=== PATIENT | male | born 1945 | race African-American/Black ===

== ENCOUNTER → 2016-05-13 | Outpatient (CLI) | payer MEDICARE, OTHER ==
[~2016-05-13] VITALS: Ht 175.3 cm; Wt 95.0 kg
[~2016-05-13] MED LIST: ALLO300T2 PO; ASPI-825 PO; DEXL60CA3 PO; FLUT16H NASAL; GLYB5 PO; LORA0.5T2 PO; LORA10TA7 PO; LOSA50TA37 PO; NIFE60TA71 PO; PANCREAZE 21,01 EACH PO; PERCT10 PO; SENN-30 PO; TADA5TAB2 PO
[2016-05-13 10:54] VITALS: BP 136/77
[2016-05-13 11:47] LABS: GLUCOSE COMMENT 1 Doctor Notified; GLUCOSE,POINT OF CARE 252 MG/DL (70-110)
== END | disposition home or self-care (01) ==
LOC: SRCNTR 10:23
PROVIDERS: ATTEND Hospitalist
DX: I10 Essential (primary) hypertension (principal); E11.65 Type 2 diabetes mellitus with hyperglycemia; E78.5 Hyperlipidemia, unspecified; M10.9 Gout, unspecified
CPT/HCPCS: 82962; G0463

== ENCOUNTER → 2016-06-20 | Outpatient (CLI) | payer MEDICARE, OTHER ==
[~2016-06-20] VITALS: Ht 175.3 cm; Wt 93.0 kg
[2016-06-20 10:33] VITALS: BP 157/84
[2016-06-20 15:27] LABS: GLUCOSE,POINT OF CARE 170 MG/DL (70-110)
== END | disposition home or self-care (01) ==
LOC: SRCNTR 10:20
PROVIDERS: ATTEND Hospitalist
DX: I10 Essential (primary) hypertension (principal); E11.9 Type 2 diabetes mellitus without complications; E78.5 Hyperlipidemia, unspecified; K86.1 Other chronic pancreatitis; R32 Unspecified urinary incontinence; M10.9 Gout, unspecified; K21.9 Gastro-esophageal reflux disease without esophagitis
CPT/HCPCS: 82962; G0463

== ENCOUNTER → 2016-09-12 | Outpatient (CLI) | payer MEDICARE, OTHER ==
[~2016-09-12] VITALS: Ht 175.3 cm; Wt 93.2 kg
[2016-09-12 11:35] VITALS: BP 168/91
[2016-09-12 14:47] LABS: GLUCOSE COMMENT 1 Doctor Notified; GLUCOSE,POINT OF CARE 153 MG/DL (70-110)
== END | disposition home or self-care (01) ==
LOC: SRCNTR 11:20
PROVIDERS: ATTEND Hospitalist
DX: E11.9 Type 2 diabetes mellitus without complications (principal); M10.9 Gout, unspecified; E78.5 Hyperlipidemia, unspecified; K21.9 Gastro-esophageal reflux disease without esophagitis; M19.90 Unspecified osteoarthritis, unspecified site; I10 Essential (primary) hypertension; R10.9 Unspecified abdominal pain; K86.1 Other chronic pancreatitis; R32 Unspecified urinary incontinence; G89.29 Other chronic pain
CPT/HCPCS: 82962; G0463

== ENCOUNTER → 2016-09-24 | Outpatient (CLI) | payer MEDICARE, OTHER ==
[2016-09-24 13:42] LABS: BASOPHILS % (AUTO) 0.5 % (0.0-2.0); EOSINOPHILS % (AUTO) 1.6 % (1.0-6.0); HEMATOCRIT 41.7 % (41-53); HEMOGLOBIN 13.5 g/dL (13.5-17.5); LYMPHOCYTES # (AUTO) 2.5 K/uL (1.0-4.8); LYMPHOCYTES % (AUTO) 25.4 % (22.0-44.0); MEAN CORPUSCULAR HEMOGLOBIN 27.3 pg (26.0-34.0); MEAN CORPUSCULAR HGB CONC 32.3 G/dL (31.0-37.0); MEAN CORPUSCULAR VOLUME 84 fL (80-100); MONOCYTES # (AUTO) 0.7 K/uL (0.1-1.0); MONOCYTES % (AUTO) 6.9 % (2.0-9.0); NEUTROPHILS # (AUTO) 6.6 K/uL (1.8-7.7); NEUTROPHILS % (AUTO) 65.6 % (40.0-70.0); PLATELET COUNT (AUTO) 261 K/uL (150-450); RED BLOOD CELL COUNT(AUTO) 4.95 MIL/uL (4.50-5.90)
[2016-09-24 13:54] LABS: HEMOGLOBIN A1C 8.9 % (4.5-6.2)
[2016-09-24 13:56] LABS: ALBUMIN 4.6 g/dL (3.4-5.0); BILIRUBIN,TOTAL 0.4 mg/dL (0.1-1.0); CALCIUM, TOTAL 9.7 mg/dL (8.8-10.5); CHOL/HDL RATIO 4.7 (4.2-7.3); CREATININE 1.41 mg/dL (0.60-1.30); POTASSIUM 4.7 mmol/L (3.5-5.1); THYROID STIMULATING HORMONE 3.1 uIU/mL (0.36-3.74); TOTAL PROTEIN, SERUM 8.6 g/dL (6.4-8.2)
[2016-09-24 14:12] LABS: PROSTATE SPECIFIC ANTIGEN 0.84 ng/mL (0.00-4.00)
== END | disposition home or self-care (01) ==
LOC: LABPV 10:54
PROVIDERS: ATTEND Hospitalist
DX: K86.1 Other chronic pancreatitis (principal); I10 Essential (primary) hypertension; E11.9 Type 2 diabetes mellitus without complications; E78.5 Hyperlipidemia, unspecified
CPT/HCPCS: 83036; 84153; 84439; 84443

== ENCOUNTER → 2016-09-30 | Outpatient (CLI) | payer MEDICARE, OTHER ==
[~2016-09-30] MED LIST changes: +BARIUM SULFATE 0.1% SUSPENSION 450 ML BOTTLE ONE; +IOVERSOL 350 MG/ML 150 ML VIAL ONE; +SODIUM CHLORIDE 0.9% 100 ML ONE
== END | disposition home or self-care (01) ==
LOC: RADMN 07:51
PROVIDERS: ATTEND Hospitalist
DX: I70.0 Atherosclerosis of aorta (principal); K57.30 Diverticulosis of large intestine without perforation or abscess without bleeding; K42.9 Umbilical hernia without obstruction or gangrene; M47.819 Spondylosis without myelopathy or radiculopathy, site unspecified
CPT/HCPCS: 74177; J7050; Q9967; Z7610

== ENCOUNTER → 2016-12-06 | Outpatient (CLI) | payer MEDICARE, OTHER ==
[~2016-12-06] VITALS: Ht 175.3 cm; Wt 93.0 kg
[~2016-12-06] MED LIST changes: +ATOR10TA84 PO; -BARIUM SULFATE 0.1% SUSPENSION 450 ML BOTTLE ONE; -IOVERSOL 350 MG/ML 150 ML VIAL ONE; +LOSA1TAB37 PO; -SODIUM CHLORIDE 0.9% 100 ML ONE
[2016-12-06 10:55] VITALS: BP 124/71
[2016-12-06 12:13] LABS: GLUCOSE,POINT OF CARE 303 MG/DL (70-110)
== END | disposition home or self-care (01) ==
LOC: SRCNTR 10:43
PROVIDERS: ATTEND Hospitalist
DX: I10 Essential (primary) hypertension (principal); E11.9 Type 2 diabetes mellitus without complications; E78.5 Hyperlipidemia, unspecified; K21.9 Gastro-esophageal reflux disease without esophagitis; M19.90 Unspecified osteoarthritis, unspecified site; R10.9 Unspecified abdominal pain; M10.9 Gout, unspecified; R32 Unspecified urinary incontinence; J30.2 Other seasonal allergic rhinitis; G89.29 Other chronic pain; Z79.82 Long term (current) use of aspirin
CPT/HCPCS: 82962

== ENCOUNTER → 2018-01-22 | Outpatient (CLI) | payer MEDICARE, OTHER ==
[~2018-01-22] MED LIST changes: -LOSA50TA37 PO; +SENN-175 PO; -SENN-30 PO; +TADA5TAB PO; -TADA5TAB2 PO
== END | disposition home or self-care (01) ==
LOC: RADPV 07:38
PROVIDERS: ATTEND Specialist
DX: N28.1 Cyst of kidney, acquired (principal)
CPT/HCPCS: 76700

== ENCOUNTER → 2018-01-30 | Outpatient (CLI) | payer MEDICARE, OTHER | END | disposition home or self-care (01) | LOC: RADPV 08:23 | PROVIDERS: ATTEND Internal Medicine Cardiovascular Disease | DX: I37.1 Nonrheumatic pulmonary valve insufficiency (principal); I50.1 Left ventricular failure, unspecified | CPT/HCPCS: 93306 ==

== ENCOUNTER → 2018-02-06 | Outpatient (CLI) | payer MEDICARE, OTHER ==
[~2018-02-06] MED LIST changes: +SESTAMIBI TC99M/UD ISOTOPE 1 EA INJ INJ ONE
[2018-02-06 08:45] VITALS: BP 147/86
[2018-02-06] MEDS: REGADENOSON 0.4 MG/5 ML PF SYRINGE IVP ONE (09:52)
[2018-02-06 09:57] VITALS: BP 157/76
== END | disposition home or self-care (01) ==
LOC: CARDMN 08:36
PROVIDERS: ATTEND Internal Medicine Cardiovascular Disease
DX: I25.89 Other forms of chronic ischemic heart disease (principal)
CPT/HCPCS: 78452; 93017; A9500

== ENCOUNTER → 2018-04-20 | Outpatient (CLI) | payer MEDICARE, OTHER ==
[~2018-04-20] MED LIST changes: +GADOBUTROL 1 MMOL/ML 10 ML VIAL IVP ONE; -SENN-175 PO; +SENN-176 PO; -SESTAMIBI TC99M/UD ISOTOPE 1 EA INJ INJ ONE
== END | disposition home or self-care (01) ==
LOC: RADMN 08:31
PROVIDERS: ATTEND Legal Medicine
DX: N28.1 Cyst of kidney, acquired (principal)
CPT/HCPCS: 74183; A9585

== ENCOUNTER → 2018-11-10 | Outpatient (CLI) | payer MEDICARE, OTHER ==
[~2018-11-10] MED LIST changes: -GADOBUTROL 1 MMOL/ML 10 ML VIAL IVP ONE
== END | disposition home or self-care (01) ==
LOC: RADPV 10:37
PROVIDERS: ATTEND Legal Medicine
DX: N43.3 Hydrocele, unspecified (principal)
CPT/HCPCS: 76870

== ENCOUNTER → 2019-01-12 | Outpatient (CLI) | payer MEDICARE, OTHER ==
[~2019-01-12] MED LIST changes: +LORA-999 PO; -LORA0.5T2 PO
== END | disposition home or self-care (01) ==
LOC: RADPV 07:30
PROVIDERS: ATTEND Internal Medicine Gastroenterology
DX: N28.1 Cyst of kidney, acquired (principal); R16.0 Hepatomegaly, not elsewhere classified; K76.0 Fatty (change of) liver, not elsewhere classified; M25.512 Pain in left shoulder
CPT/HCPCS: 76700

== ENCOUNTER → 2019-04-29 | Outpatient (CLI) | payer MEDICARE, OTHER ==
[~2019-04-29] MED LIST changes: +BARIUM SULFATE 0.1% SUSPENSION 450 ML BOTTLE ONE; +IOVERSOL 350 MG/ML 100 ML VIAL ONE; +NIFE-39 PO; -NIFE60TA71 PO; +OXYC-601 PO; -PERCT10 PO; +SODIUM CHLORIDE 0.9% 100 ML ONE
== END | disposition home or self-care (01) ==
LOC: RADMN 08:55
PROVIDERS: ATTEND Internal Medicine Gastroenterology
DX: K57.30 Diverticulosis of large intestine without perforation or abscess without bleeding (principal); K85.90 Acute pancreatitis without necrosis or infection, unspecified; R07.9 Chest pain, unspecified; R10.30 Lower abdominal pain, unspecified; K44.9 Diaphragmatic hernia without obstruction or gangrene; N28.1 Cyst of kidney, acquired; K42.9 Umbilical hernia without obstruction or gangrene
CPT/HCPCS: 71046; 74178; J7050; Q9967

== ENCOUNTER → 2020-05-31 | Outpatient (CLI) | payer MEDICARE, OTHER ==
[~2020-05-31] MED LIST changes: -GLYB5 PO; +GLYB5TAB10 PO; -SENN-176 PO; +SENN-277 PO
== END | disposition home or self-care (01) ==
LOC: RADMN 08:50
PROVIDERS: ATTEND Licensed Practical Nurse
DX: K76.0 Fatty (change of) liver, not elsewhere classified (principal); N28.1 Cyst of kidney, acquired; K57.30 Diverticulosis of large intestine without perforation or abscess without bleeding; K44.9 Diaphragmatic hernia without obstruction or gangrene; K40.90 Unilateral inguinal hernia, without obstruction or gangrene, not specified as recurrent; K42.0 Umbilical hernia with obstruction, without gangrene; N40.0 Benign prostatic hyperplasia without lower urinary tract symptoms; R10.9 Unspecified abdominal pain
CPT/HCPCS: 74178; A9575; J7050; Q9967

== ENCOUNTER 2020-08-22 11:51 | Emergency (ER) | payer MEDICARE, OTHER ==
[~2020-08-22] VITALS: Ht 175.3 cm; Wt 95.9 kg
[~2020-08-22 11:51] MED LIST changes: -BARIUM SULFATE 0.1% SUSPENSION 450 ML BOTTLE ONE; -IOVERSOL 350 MG/ML 100 ML VIAL ONE; -SODIUM CHLORIDE 0.9% 100 ML ONE
[2020-08-22 12:22] LABS: BASOPHILS % (AUTO) 0.8 % (0.0-2.0); EOSINOPHILS % (AUTO) 2.4 % (1.0-6.0); HEMATOCRIT 37.8 % (41-53); HEMOGLOBIN 12.4 g/dL (13.5-17.5); LYMPHOCYTES # (AUTO) 1.8 K/uL (1.0-4.8); LYMPHOCYTES % (AUTO) 21.6 % (22.0-44.0); MEAN CORPUSCULAR HEMOGLOBIN 27.9 pg (26.0-34.0); MEAN CORPUSCULAR HGB CONC 32.8 G/dL (31.0-37.0); MEAN CORPUSCULAR VOLUME 85 fL (80-100); MONOCYTES # (AUTO) 0.7 K/uL (0.1-1.0); MONOCYTES % (AUTO) 8.2 % (2.0-9.0); NEUTROPHILS # (AUTO) 5.7 K/uL (1.8-7.7); PLATELET COUNT (AUTO) 255 K/uL (150-450); RED BLOOD CELL COUNT(AUTO) 4.44 MIL/uL (4.50-5.90)
[2020-08-22 12:31] LABS: ANION GAP 13 mmol/L (8-16); CALCIUM, TOTAL 9.7 mg/dL (8.8-10.5); CARBON DIOXIDE 24 mmol/L (22-29); CHLORIDE 102 mmol/L (98-107); CREATININE 1.29 mg/dL (0.60-1.30); GLOMERULAR FILTR. RATE CALC > 60 mL/min (>60); GLUCOSE,RANDOM 152 mg/dL (70-110); POTASSIUM 3.8 mmol/L (3.5-5.1); SODIUM SERUM 139 mmol/L (136-145); UREA NITROGEN, BLOOD 26 mg/dL (7-18)
[2020-08-22 12:36] LABS: ALANINE AMINOTRANSFERASE 34 U/L (12-78); ALBUMIN 4.7 g/dL (3.4-5.0); ALKALINE PHOSPHATASE 72 U/L (46-116); ASPARTATE AMINOTRANSFERASE 20 U/L (15-37); BILIRUBIN,TOTAL 0.3 mg/dL (0.1-1.0); TOTAL PROTEIN, SERUM 8.4 g/dL (6.4-8.2)
[2020-08-22] MEDS ORDERED: ACETAMINOPHEN 325 MG TABLET PO ONE (12:45)
[2020-08-22] MEDS ORDERED: LIPA1CAP30 PO (12:48)
[2020-08-22] MEDS ORDERED: ASPI-1444 PO (12:48)
[2020-08-22] MEDS ORDERED: ACETAMINOPHEN 500 MG TABLET ONE (12:54)
[2020-08-22] MEDS ORDERED: KETOROLAC TROMETHAMINE 30 MG/ML VIAL ONE (13:14)
[2020-08-22] MEDS ORDERED: KETOROLAC TROMETHAMINE 30 MG/ML VIAL IVP ONE (13:15)
[2020-08-22 13:49] VITALS: BP 138/79
== END 2020-08-22 13:50 | disposition home or self-care (01) ==
LOC: EMS 11:55
DX: R07.89 Other chest pain (principal); F41.9 Anxiety disorder, unspecified; F32.9 Major depressive disorder, single episode, unspecified; E11.9 Type 2 diabetes mellitus without complications; K21.9 Gastro-esophageal reflux disease without esophagitis; E78.00 Pure hypercholesterolemia, unspecified; I10 Essential (primary) hypertension; F17.210 Nicotine dependence, cigarettes, uncomplicated
CPT/HCPCS: 36415; 71045; 80053; 82962; 83880; 84484; 85025; 93005; 96374; 99285; J1885

== ENCOUNTER 2021-02-08 12:45 | Emergency (ER) | payer MEDICARE, OTHER ==
[~2021-02-08] VITALS: Ht 175.3 cm; Wt 95.9 kg
[~2021-02-08 12:45] MED LIST changes: +ASPI-1444 PO; -ASPI-825 PO; +LIPA1CAP30 PO; +OXYC-490 PO; -OXYC-601 PO; -PANCREAZE 21,01 EACH PO
[2021-02-08] MEDS ORDERED: LOSA50TA37 PO (12:55)
[2021-02-08] MEDS ORDERED: LEVO75 PO (12:55)
[2021-02-08] MEDS ORDERED: GLIP2.5T17 PO (12:55)
[2021-02-08] MEDS ORDERED: DICL50TA9 PO (12:55)
[2021-02-08] MEDS ORDERED: SITA100 PO (12:55)
[2021-02-08 13:59] LABS: EOSINOPHILS % (AUTO) 2.5 % (1.0-6.0); HEMOGLOBIN 12.6 g/dL (13.5-17.5); LYMPHOCYTES # (AUTO) 2.2 K/uL (1.0-4.8); LYMPHOCYTES % (AUTO) 21.5 % (22.0-44.0); MEAN CORPUSCULAR HEMOGLOBIN 27.7 pg (26.0-34.0); MEAN CORPUSCULAR HGB CONC 32.4 G/dL (31.0-37.0); MEAN CORPUSCULAR VOLUME 86 fL (80-100); MONOCYTES # (AUTO) 0.8 K/uL (0.1-1.0); PLATELET COUNT (AUTO) 298 K/uL (150-450); RED BLOOD CELL COUNT(AUTO) 4.56 MIL/uL (4.50-5.90); RED CELL DISTRIBUTION WIDTH 14.7 % (11.5-14.5)
[2021-02-08 14:21] LABS: LACTIC ACID 1.1 mmol/L (0.4-2.0)
[2021-02-08 14:26] LABS: CALCIUM, TOTAL 10.1 mg/dL (8.8-10.5); CREATININE 1.56 mg/dL (0.60-1.30); POTASSIUM 4.6 mmol/L (3.5-5.1)
[2021-02-08 14:29] LABS: ALBUMIN 4.3 g/dL (3.4-5.0); BILIRUBIN,TOTAL 0.3 mg/dL (0.1-1.0); TOTAL PROTEIN, SERUM 8.5 g/dL (6.4-8.2)
[2021-02-08 15:30] VITALS: BP 151/79
[2021-02-08 16:21] LABS: APPEARANCE,URINE CLEAR (CLEAR); GLUCOSE, URINE (UA) NEGATIVE (NEGATIVE); KETONES,URINE TRACE mg/dL (NEGATIVE); LEUKOCYTE ESTERASE ,URINE SMALL (NEGATIVE); NITRATE,URINE NEGATIVE (NEGATIVE); OCCULT BLOOD,URINE NEGATIVE (NEGATIVE); PH,URINE 5.5 (5.0-8.0); PROTEIN,URINE NEGATIVE (NEGATIVE); UROBILINOGEN,URINE 0.2 mg/dL (<=1.0)
[2021-02-08 16:24] LABS: BILIRUBIN,URINE PRELIM. POSITIVE (NEGATIVE)
[2021-02-08 16:31] LABS: BACTERIA,URINE None Seen /HPF (None Seen); HYALINE CASTS, URINE 0-2 /LPF (None Seen); RBC,URINE 0-2 /HPF (0-2)
== END 2021-02-08 16:08 | disposition home or self-care (01) ==
LOC: EMS 12:52
DX: R10.32 Left lower quadrant pain (principal); F41.9 Anxiety disorder, unspecified; F32.9 Major depressive disorder, single episode, unspecified; E11.9 Type 2 diabetes mellitus without complications; K21.9 Gastro-esophageal reflux disease without esophagitis; E78.00 Pure hypercholesterolemia, unspecified; I10 Essential (primary) hypertension; F17.210 Nicotine dependence, cigarettes, uncomplicated; F12.90 Cannabis use, unspecified, uncomplicated; Z79.82 Long term (current) use of aspirin
CPT/HCPCS: 74176; 80053; 81001; 83605; 83690; 85025; 99284

== ENCOUNTER → 2022-02-05 | Outpatient (CLI) | payer MEDICARE, OTHER ==
[~2022-02-05] MED LIST changes: +ATOR10TA PO; -ATOR10TA84 PO; +DICL-208 PO; +GLIP2.5T17 PO; +GLYB-145 PO; -GLYB5TAB10 PO; +LEVO75 PO; +LOSA-382 PO; -NIFE-39 PO; +SITA100 PO
== END | disposition home or self-care (01) ==
LOC: RADPV 08:38
PROVIDERS: ATTEND Internal Medicine Gastroenterology
DX: N28.1 Cyst of kidney, acquired (principal); K76.0 Fatty (change of) liver, not elsewhere classified; K86.0 Alcohol-induced chronic pancreatitis
CPT/HCPCS: 76700

== ENCOUNTER 2022-05-19 13:53 | Inpatient (IN) | payer OTHER ==
[~2022-05-19] VITALS: Ht 175.3 cm; Wt 93.6 kg
[2022-05-19 14:23] LABS: BASOPHILS % (AUTO) 0.7 % (0.0-2.0); EOSINOPHILS % (AUTO) 3.2 % (1.0-6.0); HEMATOCRIT 35.7 % (41-53); HEMOGLOBIN 11.4 g/dL (13.5-17.5); LYMPHOCYTES # (AUTO) 2.8 K/uL (1.0-4.8); LYMPHOCYTES % (AUTO) 28.5 % (22.0-44.0); MEAN CORPUSCULAR HEMOGLOBIN 28.1 pg (26.0-34.0); MEAN CORPUSCULAR HGB CONC 31.9 G/dL (31.0-37.0); MEAN CORPUSCULAR VOLUME 88 fL (80-100); MONOCYTES # (AUTO) 0.6 K/uL (0.1-1.0); MONOCYTES % (AUTO) 6.4 % (2.0-9.0); NEUTROPHILS % (AUTO) 61.2 % (40.0-70.0); PLATELET COUNT (AUTO) 346 K/uL (150-450); RED BLOOD CELL COUNT(AUTO) 4.06 MIL/uL (4.50-5.90); RED CELL DISTRIBUTION WIDTH 14.9 % (11.5-14.5)
[2022-05-19] MEDS ORDERED: IOHEXOL 350 MG/ML 100 ML VIAL ONE (14:29)
[2022-05-19] MEDS ORDERED: SODIUM CHLORIDE 0.9% 100 ML ONE (14:30)
[2022-05-19 14:32] LABS: CALCIUM, TOTAL 9.8 mg/dL (8.8-10.5); CREATININE 2.14 mg/dL (0.60-1.30); POTASSIUM 4.7 mmol/L (3.5-5.1)
[2022-05-19 14:38] LABS: ALBUMIN 4.2 g/dL (3.4-5.0); BILIRUBIN,TOTAL 0.2 mg/dL (0.1-1.0); PROTHROMBIN TIME 10.5 SEC (9.4-11.6); TOTAL PROTEIN, SERUM 8.5 g/dL (6.4-8.2)
[2022-05-19] MEDS ORDERED: ASPIRIN 81 MG CHEWABLE TABLET PO ONE (14:45)
[2022-05-19 14:56] LABS: COVID AG,FIA SOURCE NASOPHARYNGEAL
[2022-05-19] MEDS ORDERED: ACETAMINOPHEN 325 MG TABLET PO PRN (15:30)
[2022-05-19] MEDS ORDERED: ONDANSETRON HCL 4 MG/2 ML VIAL IVP PRN ×2 (15:30→20:15)
[2022-05-19 18:27] VITALS: BP 127/73
[2022-05-19 20:08] VITALS: BP 121/72
[2022-05-19] MEDS ORDERED: HYDROCODONE/ACETAMINOPHEN 5-325 MG TABLET PO PRN (20:15)
[2022-05-19] MEDS ORDERED: BISACODYL 10 MG RECTAL RECTAL SUPPOSITORY PR PRN (20:15)
[2022-05-19] MEDS ORDERED: MAGNESIUM HYDROXIDE SUSPENSION 30 ML UDCUP PO PRN (20:15)
[2022-05-19] MEDS ORDERED: MORPHINE SULFATE 2 MG/ML SYRINGE IVP PRN (20:15)
[2022-05-19] MEDS ORDERED: ZOLPIDEM TARTRATE 5 MG TABLET PO PRN (20:15)
[2022-05-19] MEDS: DOCUSATE SODIUM 100 MG CAPSULE PO SCH (20:57)
[2022-05-19 23:26] VITALS: BP 144/77
[2022-05-19] MEDS: HEPARIN SODIUM,PORCINE 5,000 UNITS/ML VIAL SQ SCH (23:47)
[2022-05-20 04:23] VITALS: BP 139/76
[2022-05-20] MEDS: LEVOTHYROXINE SODIUM 75 MCG TABLET PO SCH (06:20)
[2022-05-20 07:42] VITALS: BP 135/81
[2022-05-20] MEDS ORDERED: GlyBURIDE 5 MG TABLET PO SCH (08:00)
[2022-05-20] MEDS: HEPARIN SODIUM,PORCINE 5,000 UNITS/ML VIAL SQ SCH ×2 (08:44→16:34)
[2022-05-20] MEDS: PANTOPRAZOLE SODIUM 40 MG DR TABLET PO SCH (08:45)
[2022-05-20] MEDS: ATORVASTATIN CALCIUM 10 MG TABLET PO SCH (08:45)
[2022-05-20] MEDS: ASPIRIN 81 MG DR TABLET PO SCH (08:45)
[2022-05-20] MEDS: SitaGLIPtin PHOSPHATE 100 MG TABLET PO SCH (08:45)
[2022-05-20] MEDS: DOCUSATE SODIUM 100 MG CAPSULE PO SCH ×2 (08:45→21:06)
[2022-05-20] MEDS ORDERED: GlipiZIDE ER 2.5 MG ER TABLET PO SCH (09:00)
[2022-05-20 12:00] VITALS: BP 128/82
[2022-05-20] MEDS: AMYLASE/LIPASE/PROTEASE 60/12/38 MU DR CAPSULE PO SCH ×2 (12:00→18:32)
[2022-05-20] MEDS ORDERED: DEXTROSE 50%-WATER 25 GM/50 ML SYRINGE IVP PRN (12:45)
[2022-05-20] MEDS ORDERED: LORazepam 2 MG/ML VIAL IVP ONE (14:30)
[2022-05-20 15:32] VITALS: BP 145/93
[2022-05-20] MEDS: INSULIN LISPRO 100 UNITS/ML SQ PRN ×2 (18:31→21:08)
[2022-05-20 20:05] VITALS: BP 154/80
[2022-05-20 23:43] VITALS: BP 117/60
[2022-05-21] MEDS: HEPARIN SODIUM,PORCINE 5,000 UNITS/ML VIAL SQ SCH ×4 (00:14→22:27)
[2022-05-21 04:41] VITALS: BP 136/81
[2022-05-21 06:30] LABS: CHOL/HDL RATIO 3.7 (4.2-7.3)
[2022-05-21] MEDS: LEVOTHYROXINE SODIUM 75 MCG TABLET PO SCH (06:40)
[2022-05-21] MEDS: GlipiZIDE ER 2.5 MG ER TABLET PO SCH (06:40)
[2022-05-21] MEDS: INSULIN LISPRO 100 UNITS/ML SQ PRN ×4 (06:41→22:26)
[2022-05-21 07:17] VITALS: BP 145/80
[2022-05-21] MEDS: SitaGLIPtin PHOSPHATE 100 MG TABLET PO SCH (08:24)
[2022-05-21] MEDS: PANTOPRAZOLE SODIUM 40 MG DR TABLET PO SCH (08:24)
[2022-05-21] MEDS: ATORVASTATIN CALCIUM 10 MG TABLET PO SCH (08:24)
[2022-05-21] MEDS: DOCUSATE SODIUM 100 MG CAPSULE PO SCH ×2 (08:24→22:27)
[2022-05-21] MEDS: ASPIRIN 81 MG DR TABLET PO SCH (08:24)
[2022-05-21] MEDS: AMYLASE/LIPASE/PROTEASE 60/12/38 MU DR CAPSULE PO SCH ×3 (08:25→18:04)
[2022-05-21 08:56] LABS: GLUCOMETER DEV NAME(LOC) 5S.2B; GLUCOSE,POINT OF CARE 187 MG/DL (70-110)
[2022-05-21 08:56] LABS: GLUCOMETER DEV NAME(LOC) 5S.2B; GLUCOSE,POINT OF CARE 216 MG/DL (70-110)
[2022-05-21 11:11] VITALS: BP 142/80
[2022-05-21] MEDS: CLOPIDOGREL BISULFATE 75 MG TABLET PO SCH (11:48)
[2022-05-21] MEDS ORDERED: ATOR10TA69 PO (11:57)
[2022-05-21] MEDS ORDERED: CLOP75TA60 PO (11:57)
[2022-05-21] MEDS ORDERED: ASPI-1444 PO (11:57)
[2022-05-21] MEDS ORDERED: LOSA-381 PO (11:57)
[2022-05-21] MEDS: ACETAMINOPHEN 325 MG TABLET PO PRN ×2 (15:33→22:27)
[2022-05-21 15:46] VITALS: BP 137/73
[2022-05-21 19:36] LABS: GLUCOMETER DEV NAME(LOC) 5N.1C; GLUCOSE,POINT OF CARE 182 MG/DL (70-110)
[2022-05-21 19:37] LABS: GLUCOMETER DEV NAME(LOC) 5S.1B; GLUCOSE,POINT OF CARE 141 MG/DL (70-110)
[2022-05-21 19:47] VITALS: BP 123/77
[2022-05-21 23:01] LABS: GLUCOMETER DEV NAME(LOC) 5S.2B; GLUCOSE,POINT OF CARE 124 MG/DL (70-110)
[2022-05-21 23:01] LABS: GLUCOMETER DEV NAME(LOC) 5S.2B; GLUCOSE,POINT OF CARE 210 MG/DL (70-110)
[2022-05-21 23:52] VITALS: BP 138/64
[2022-05-22 04:41] VITALS: BP 115/62
[2022-05-22] MEDS: LEVOTHYROXINE SODIUM 75 MCG TABLET PO SCH (05:20)
[2022-05-22] MEDS: GlipiZIDE ER 2.5 MG ER TABLET PO SCH (05:20)
[2022-05-22 08:46] VITALS: BP 141/75
[2022-05-22] MEDS: AMYLASE/LIPASE/PROTEASE 60/12/38 MU DR CAPSULE PO SCH (09:13)
[2022-05-22] MEDS: SitaGLIPtin PHOSPHATE 100 MG TABLET PO SCH (09:13)
[2022-05-22] MEDS: ASPIRIN 81 MG DR TABLET PO SCH (09:13)
[2022-05-22] MEDS: DOCUSATE SODIUM 100 MG CAPSULE PO SCH (09:13)
[2022-05-22] MEDS: ATORVASTATIN CALCIUM 10 MG TABLET PO SCH (09:13)
[2022-05-22] MEDS: HEPARIN SODIUM,PORCINE 5,000 UNITS/ML VIAL SQ SCH (09:13)
[2022-05-22] MEDS: PANTOPRAZOLE SODIUM 40 MG DR TABLET PO SCH (09:14)
[2022-05-22] MEDS: CLOPIDOGREL BISULFATE 75 MG TABLET PO SCH (09:14)
[2022-05-22 17:21] LABS: GLUCOMETER DEV NAME(LOC) 5S.1B; GLUCOSE,POINT OF CARE 165 MG/DL (70-110)
== END 2022-05-22 11:45 | disposition home health service (06) | DRG 71 ==
LOC: EMS 13:59 → 5S 17:17
PROVIDERS: ADMIT Internal Medicine; ATTEND Internal Medicine
DX: G93.41 Metabolic encephalopathy (principal); G45.9 Transient cerebral ischemic attack, unspecified; K86.1 Other chronic pancreatitis; E03.9 Hypothyroidism, unspecified; E66.9 Obesity, unspecified; E11.22 Type 2 diabetes mellitus with diabetic chronic kidney disease; I12.9 Hypertensive chronic kidney disease with stage 1 through stage 4 chronic kidney disease, or unspecified chronic kidney disease; N18.30 Chronic kidney disease, stage 3 unspecified; F10.10 Alcohol abuse, uncomplicated; E78.5 Hyperlipidemia, unspecified; E78.00 Pure hypercholesterolemia, unspecified; F41.9 Anxiety disorder, unspecified; K21.9 Gastro-esophageal reflux disease without esophagitis; R47.81 Slurred speech; Z20.822 Contact with and (suspected) exposure to COVID-19; F17.290 Nicotine dependence, other tobacco product, uncomplicated; Z79.02 Long term (current) use of antithrombotics/antiplatelets; Z79.82 Long term (current) use of aspirin; Z79.899 Other long term (current) drug therapy; Z68.30 Body mass index [BMI] 30.0-30.9, adult
CPT/HCPCS: 70496; 70551; 71045; 80053; 80061; 82962; 84484; 85025; 85610; 92610; 93005; 93306; 93880; 97110; 97116; 97162; 97165; 99291; G0378; J1644; J2060; J7050; Q9967; 36415-L1; 36415-TC; 70450; 70450-TC

== ENCOUNTER 2022-07-01 15:59 | Emergency (ER) | payer MEDICARE, OTHER ==
[~2022-07-01] VITALS: Ht 175.3 cm; Wt 88.2 kg
[~2022-07-01 15:59] MED LIST changes: -ALLO300T2 PO; -ATOR10TA PO; +ATOR10TA69 PO; +CLOP75TA60 PO; -GLYB-145 PO; -LORA-999 PO; +LOSA-381 PO; -LOSA-382 PO; -LOSA1TAB37 PO; -OXYC-490 PO; -SENN-277 PO; -TADA5TAB PO
[2022-07-01 17:18] LABS: BASOPHILS % (AUTO) 0.8 % (0.0-2.0); EOSINOPHILS % (AUTO) 2.9 % (1.0-6.0); HEMATOCRIT 33.4 % (41-53); HEMOGLOBIN 10.9 g/dL (13.5-17.5); LYMPHOCYTES # (AUTO) 2.3 K/uL (1.0-4.8); LYMPHOCYTES % (AUTO) 22.6 % (22.0-44.0); MEAN CORPUSCULAR HEMOGLOBIN 28.8 pg (26.0-34.0); MEAN CORPUSCULAR HGB CONC 32.5 G/dL (31.0-37.0); MEAN CORPUSCULAR VOLUME 89 fL (80-100); MONOCYTES # (AUTO) 0.9 K/uL (0.1-1.0); MONOCYTES % (AUTO) 8.8 % (2.0-9.0); NEUTROPHILS # (AUTO) 6.6 K/uL (1.8-7.7); NEUTROPHILS % (AUTO) 64.9 % (40.0-70.0); PLATELET COUNT (AUTO) 285 K/uL (150-450); RED BLOOD CELL COUNT(AUTO) 3.78 MIL/uL (4.50-5.90); RED CELL DISTRIBUTION WIDTH 14.2 % (11.5-14.5)
[2022-07-01 17:25] LABS: CALCIUM, TOTAL 9.6 mg/dL (8.8-10.5); CREATININE 1.73 mg/dL (0.60-1.30); POTASSIUM 5.2 mmol/L (3.5-5.1)
[2022-07-01 17:33] LABS: ALBUMIN 4.1 g/dL (3.4-5.0); BILIRUBIN,TOTAL 0.2 mg/dL (0.1-1.0); TOTAL PROTEIN, SERUM 7.8 g/dL (6.4-8.2)
[2022-07-01 17:39] LABS: APPEARANCE,URINE CLEAR (CLEAR); BILIRUBIN,URINE NEGATIVE (NEGATIVE); GLUCOSE, URINE (UA) >=1000 mg/dL (NEGATIVE); KETONES,URINE NEGATIVE (NEGATIVE); LEUKOCYTE ESTERASE ,URINE MODERATE (NEGATIVE); NITRATE,URINE POSITIVE (NEGATIVE); OCCULT BLOOD,URINE NEGATIVE (NEGATIVE); PROTEIN,URINE NEGATIVE (NEGATIVE); SPECIFIC GRAVITIY, URINE 1.013 (1.003-1.030); UROBILINOGEN,URINE <=1.0 mg/dL (<=1.0)
[2022-07-01 17:43] LABS: LACTIC ACID 0.8 mmol/L (0.4-2.0)
[2022-07-01 17:49] LABS: BACTERIA,URINE Moderate /HPF (None Seen); RBC,URINE None Seen /HPF (0-2); SQUAMOUS EPITHELIAL CELL,UR Few /LPF (None Seen)
[2022-07-01] MEDS ORDERED: CEPH-558 PO (21:17)
[2022-07-01 21:25] VITALS: BP 110/60
== END 2022-07-01 21:28 | disposition home or self-care (01) ==
LOC: EMS 16:00
DX: R42 Dizziness and giddiness (principal); I12.9 Hypertensive chronic kidney disease with stage 1 through stage 4 chronic kidney disease, or unspecified chronic kidney disease; E11.22 Type 2 diabetes mellitus with diabetic chronic kidney disease; N18.9 Chronic kidney disease, unspecified; E11.65 Type 2 diabetes mellitus with hyperglycemia; N39.0 Urinary tract infection, site not specified; F41.9 Anxiety disorder, unspecified; M19.90 Unspecified osteoarthritis, unspecified site; F32.A Depression, unspecified; E78.00 Pure hypercholesterolemia, unspecified; F12.90 Cannabis use, unspecified, uncomplicated
CPT/HCPCS: 70450; 80053; 81001; 83605; 83690; 83880; 84484; 85025; 87086; 87186; 93005; 99285

== ENCOUNTER 2022-11-15 13:21 | Inpatient (IN) | payer MEDICARE, OTHER ==
[~2022-11-15] VITALS: Ht 175.3 cm; Wt 90.1 kg
[~2022-11-15 13:21] MED LIST changes: +CEPH-558 PO
[2022-11-15] MEDS ORDERED: NITR0.4T52 SL (13:26)
[2022-11-15] MEDS ORDERED: SEMA1PEN3 SQ (13:26)
[2022-11-15 14:05] LABS: EOSINOPHILS % (AUTO) 3.8 % (1.0-6.0); HEMOGLOBIN 12.3 g/dL (13.5-17.5); LYMPHOCYTES # (AUTO) 2.2 K/uL (1.0-4.8); LYMPHOCYTES % (AUTO) 25.7 % (22.0-44.0); MEAN CORPUSCULAR HEMOGLOBIN 28.1 pg (26.0-34.0); MEAN CORPUSCULAR HGB CONC 32.4 G/dL (31.0-37.0); MEAN CORPUSCULAR VOLUME 87 fL (80-100); MONOCYTES # (AUTO) 0.5 K/uL (0.1-1.0); MONOCYTES % (AUTO) 6.3 % (2.0-9.0); NEUTROPHILS # (AUTO) 5.3 K/uL (1.8-7.7); NEUTROPHILS % (AUTO) 63.2 % (40.0-70.0); PLATELET COUNT (AUTO) 241 K/uL (150-450); RED BLOOD CELL COUNT(AUTO) 4.39 MIL/uL (4.50-5.90); RED CELL DISTRIBUTION WIDTH 15.1 % (11.5-14.5)
[2022-11-15 14:15] LABS: CALCIUM, TOTAL 9.3 mg/dL (8.8-10.5); CREATININE 1.79 mg/dL (0.60-1.30); POTASSIUM 4.4 mmol/L (3.5-5.1)
[2022-11-15 14:18] LABS: PROTHROMBIN TIME 10.6 SEC (9.4-11.6)
[2022-11-15 14:41] LABS: BILIRUBIN,TOTAL 0.2 mg/dL (0.1-1.0); TOTAL PROTEIN, SERUM 7.6 g/dL (6.4-8.2)
[2022-11-15] MEDS ORDERED: NITROGLYCERIN 2% (1 GM=INCH) OINTMENT PACKET TP ONE (14:45)
[2022-11-15] MEDS ORDERED: IOHEXOL 350 MG/ML 100 ML VIAL ONE (15:25)
[2022-11-15] MEDS ORDERED: SODIUM CHLORIDE 0.9% 100 ML ONE (15:26)
[2022-11-15] MEDS ORDERED: PENTETATE DTPA TC99M/MCL ISOTOPE 1 EA INJ INJ ONE (17:55)
[2022-11-15] MEDS ORDERED: MAA ALBUMIN AGGREGATED TC99M/UD<10MCL ISOTOPE 1 EA INJ INJ ONE (18:10)
[2022-11-15 18:32] LABS: APPEARANCE,URINE CLEAR (CLEAR); BILIRUBIN,URINE NEGATIVE (NEGATIVE); GLUCOSE, URINE (UA) >=1000 mg/dL (NEGATIVE); KETONES,URINE NEGATIVE (NEGATIVE); LEUKOCYTE ESTERASE ,URINE MODERATE (NEGATIVE); NITRATE,URINE NEGATIVE (NEGATIVE); OCCULT BLOOD,URINE NEGATIVE (NEGATIVE); PROTEIN,URINE NEGATIVE (NEGATIVE); SPECIFIC GRAVITIY, URINE 1.017 (1.003-1.030); UROBILINOGEN,URINE <=1.0 mg/dL (<=1.0)
[2022-11-15 18:43] LABS: BACTERIA,URINE None Seen /HPF (None Seen); RBC,URINE 0-2 /HPF (0-2); SQUAMOUS EPITHELIAL CELL,UR Rare /LPF (None Seen)
[2022-11-15] MEDS ORDERED: HYDROCODONE/ACETAMINOPHEN 5-325 MG TABLET PO PRN (20:30)
[2022-11-15] MEDS ORDERED: MORPHINE SULFATE 2 MG/ML SYRINGE IVP PRN (20:30)
[2022-11-15] MEDS ORDERED: FLUTICASONE PROPIONATE 50 MCG/SPRAY 16 GM NASAL SPRAY NASAL PRN (20:30)
[2022-11-15] MEDS ORDERED: ALBUTEROL SULFATE 2.5 MG/0.5 ML NEB SOLUTION NEB PRN (20:30)
[2022-11-15] MEDS ORDERED: MAGNESIUM HYDROXIDE SUSPENSION 30 ML UDCUP PO PRN (20:30)
[2022-11-15] MEDS ORDERED: ACETAMINOPHEN 325 MG TABLET PO PRN (20:30)
[2022-11-15] MEDS ORDERED: ZOLPIDEM TARTRATE 5 MG TABLET PO PRN (20:30)
[2022-11-15] MEDS ORDERED: IPRATROPIUM BROMIDE 0.5 MG/2.5 ML NEB SOLUTION NEB PRN (20:30)
[2022-11-15] MEDS ORDERED: NITROGLYCERIN 0.4 MG SUBLINGUAL TABLET #25 SL PRN (20:30)
[2022-11-15] MEDS ORDERED: BISACODYL 10 MG RECTAL RECTAL SUPPOSITORY PR PRN (20:30)
[2022-11-15] MEDS ORDERED: ONDANSETRON HCL 4 MG/2 ML VIAL IVP PRN (20:30)
[2022-11-15 21:04] VITALS: BP 143/82; PULSE 79; RESP 19; TEMP 97.7
[2022-11-16 00:06] VITALS: BP 148/79; PULSE 77; RESP 18; TEMP 98
[2022-11-16] MEDS: DOCUSATE SODIUM 100 MG CAPSULE PO SCH ×2 (00:46→08:43)
[2022-11-16] MEDS: HEPARIN SODIUM,PORCINE 5,000 UNITS/ML VIAL SQ SCH ×2 (00:47→08:44)
[2022-11-16 04:50] VITALS: BP 137/73; PULSE 68; RESP 18; TEMP 98.1
[2022-11-16] MEDS ORDERED: GlipiZIDE ER 2.5 MG ER TABLET PO SCH (06:30)
[2022-11-16] MEDS ORDERED: LEVOTHYROXINE SODIUM 75 MCG TABLET PO SCH (06:30)
[2022-11-16 07:26] VITALS: BP 149/79; PULSE 75; RESP 19; TEMP 98.3
[2022-11-16] MEDS: AMYLASE/LIPASE/PROTEASE 30/6/19 MU DR CAPSULE PO SCH ×2 (08:42→12:24)
[2022-11-16] MEDS ORDERED: METOPROLOL TARTRATE 25 MG TABLET PO SCH (09:00)
[2022-11-16] MEDS ORDERED: ASPIRIN 81 MG DR TABLET PO SCH (09:00)
[2022-11-16] MEDS ORDERED: PANTOPRAZOLE SODIUM 40 MG/VIAL IVP SCH (09:00)
[2022-11-16] MEDS ORDERED: LORATADINE 10 MG TABLET PO SCH (09:00)
[2022-11-16] MEDS ORDERED: ATORVASTATIN CALCIUM 10 MG TABLET PO SCH (09:00)
[2022-11-16] MEDS ORDERED: SitaGLIPtin PHOSPHATE 100 MG TABLET PO SCH (09:00)
[2022-11-16] MEDS ORDERED: CLOPIDOGREL BISULFATE 75 MG TABLET PO SCH (09:00)
[2022-11-16] MEDS ORDERED: LOSARTAN POTASSIUM 25 MG TABLET PO SCH (09:00)
[2022-11-16] MEDS ORDERED: [UNRECOGNIZED DRUG - OTHER] PO SCH (09:00)
[2022-11-16 11:27] VITALS: BP 129/74; PULSE 75; RESP 19; TEMP 98.3
[2022-11-16] MEDS ORDERED: METO25 PO (13:09)
[2022-11-16 20:56] LABS: GLUCOMETER DEV NAME(LOC) 5S.1B
== END 2022-11-16 14:30 | disposition home or self-care (01) | DRG 206 ==
LOC: EMS 13:22 → 5S 18:08
PROVIDERS: ADMIT Hospitalist; ATTEND Hospitalist
DX: M94.0 Chondrocostal junction syndrome [Tietze] (principal); K86.1 Other chronic pancreatitis; R07.89 Other chest pain; I10 Essential (primary) hypertension; F32.A Depression, unspecified; F41.9 Anxiety disorder, unspecified; K21.9 Gastro-esophageal reflux disease without esophagitis; M19.90 Unspecified osteoarthritis, unspecified site; E78.00 Pure hypercholesterolemia, unspecified; E11.9 Type 2 diabetes mellitus without complications; R00.0 Tachycardia, unspecified; M10.9 Gout, unspecified; F10.90 Alcohol use, unspecified, uncomplicated; Z79.82 Long term (current) use of aspirin; Z79.01 Long term (current) use of anticoagulants; Z79.899 Other long term (current) drug therapy; Z79.84 Long term (current) use of oral hypoglycemic drugs; Z83.3 Family history of diabetes mellitus
CPT/HCPCS: 71045; 78582; 80053; 81001; 82550; 82962; 83880; 84484; 85025; 85610; 85730; 87086; 87186; 93005; 93306; 99285; A9539; A9540; C9113; J1644; J7050; Q9967; 36415-L1; 36415-TC

== ENCOUNTER 2024-09-30 22:47 | Inpatient (IN) | payer MEDICARE, MEDICAID ==
[~2024-09-30] VITALS: Ht 175.3 cm; Wt 79.0 kg
[~2024-09-30 22:47] MED LIST changes: -CEPH-558 PO; -CLOP75TA60 PO; +CLOP75TA83 PO; -DICL-208 PO; +DICL50TA10 PO; +METO25 PO; +NITR0.4T52 SL; +SEMA1PEN3 SQ
[2024-09-30 23:13] LABS: BASOPHILS % (AUTO) 0.5 % (0.0-2.0); HEMATOCRIT 38.2 % (41-53); HEMOGLOBIN 12.5 g/dL (13.5-17.5); LYMPHOCYTES # (AUTO) 2.8 K/uL (1.0-4.8); LYMPHOCYTES % (AUTO) 24.9 % (22.0-44.0); MEAN CORPUSCULAR HEMOGLOBIN 28.3 pg (26.0-34.0); MEAN CORPUSCULAR HGB CONC 32.7 G/dL (31.0-37.0); MEAN CORPUSCULAR VOLUME 87 fL (80-100); MONOCYTES # (AUTO) 0.8 K/uL (0.1-1.0); MONOCYTES % (AUTO) 7.2 % (2.0-9.0); NEUTROPHILS # (AUTO) 7.4 K/uL (1.8-7.7); NEUTROPHILS % (AUTO) 65.4 % (40.0-70.0); PLATELET COUNT (AUTO) 271 K/uL (150-450); RED BLOOD CELL COUNT(AUTO) 4.41 MIL/uL (4.50-5.90); RED CELL DISTRIBUTION WIDTH 14.1 % (11.5-14.5); WHITE BLOOD COUNT (AUTO) 11.3 K/uL (4.5-11.0)
[2024-09-30 23:32] LABS: ANION GAP 9 mmol/L (8-16); CALCIUM, TOTAL 9.8 mg/dL (8.8-10.5); CARBON DIOXIDE 26 mmol/L (22-29); CHLORIDE 100 mmol/L (98-107); CREATININE 2.01 mg/dL (0.60-1.30); GLOMERULAR FILTR. RATE CALC 39 mL/min (>60); GLUCOSE,RANDOM 124 mg/dL (70-110); POTASSIUM 4.1 mmol/L (3.5-5.1); SODIUM SERUM 135 mmol/L (136-145); UREA NITROGEN, BLOOD 32 mg/dL (7-18)
[2024-09-30 23:43] LABS: TROPONIN I-HIGH SENSITIVITY 10 ng/L (<76)
[2024-09-30 23:56] LABS: APPEARANCE,URINE CLEAR (CLEAR); BILIRUBIN,URINE NEGATIVE (NEGATIVE); COLOR,URINE COLORLESS (YELLOW); GLUCOSE, URINE (UA) 150-200 mg/dL (NEGATIVE); KETONES,URINE NEGATIVE (NEGATIVE); LEUKOCYTE ESTERASE ,URINE SMALL (NEGATIVE); NITRATE,URINE NEGATIVE (NEGATIVE); OCCULT BLOOD,URINE NEGATIVE (NEGATIVE); PH,URINE 5.5 (5.0-8.0); PH,URINE DRUG SCREEN 5.5 (5.0-8.0); PROTEIN,URINE NEGATIVE (NEGATIVE); SPECIFIC GRAVITIY, URINE 1.005 (1.003-1.030); UROBILINOGEN,URINE <=1.0 mg/dL (<=1.0)
[2024-10-01 00:03] LABS: ALCOHOL, URINE DRUG SCREEN NEGATIVE (NEGATIVE); AMPHET/METH SCREEN,URINE NEGATIVE (NEGATIVE); BARBITURATE SCREEN, URINE NEGATIVE (NEGATIVE); BENZODIAZEPINES SCREEN,URINE NEGATIVE (NEGATIVE); CANNABINOID SCREEN,URINE POSITIVE (NEGATIVE); COCAINE SCREEN,URINE NEGATIVE (NEGATIVE); METHADONE SCREEN, URINE NEGATIVE (NEGATIVE); OPIATE SCREEN,URINE NEGATIVE (NEGATIVE); PHENCYCLIDINE SCREEN,URINE NEGATIVE (NEGATIVE)
[2024-10-01 00:10] LABS: BACTERIA,URINE Few /HPF (None Seen); RBC,URINE None Seen /HPF (0-2); SQUAMOUS EPITHELIAL CELL,UR Rare /LPF (None Seen)
[2024-10-01] MEDS ORDERED: ONDANSETRON HCL 4 MG/2 ML VIAL IVP PRN (06:00)
[2024-10-01] MEDS ORDERED: INSULIN LISPRO 100 UNITS/ML SQ PRN (06:00)
[2024-10-01] MEDS ORDERED: DEXTROSE 50%-WATER 25 GM/50 ML SYRINGE IVP PRN (06:00)
[2024-10-01 06:46] LABS: GLUCOMETER DEV NAME(LOC) ERT.7; GLUCOSE,POINT OF CARE 105 MG/DL (70-110)
[2024-10-01] MEDS: FAMOTIDINE 20 MG TABLET PO SCH (08:01)
[2024-10-01] MEDS: DOCUSATE SODIUM 100 MG CAPSULE PO SCH (08:01)
[2024-10-01] MEDS: ASPIRIN 81 MG CHEWABLE TABLET PO SCH (08:02)
[2024-10-01] MEDS: HEPARIN SODIUM,PORCINE 5,000 UNITS/ML VIAL SQ SCH (08:02)
[2024-10-01] MEDS: ACETAMINOPHEN 325 MG TABLET PO PRN (08:14)
[2024-10-01 12:29] LABS: TROPONIN I-HIGH SENSITIVITY 9 ng/L (<76)
[2024-10-01 20:26] VITALS: BP 154/88; PULSE 89; RESP 19; TEMP 97.5; O2SAT 99
[2024-10-01 21:26] LABS: GLUCOMETER DEV NAME(LOC) 5S.1D; GLUCOSE,POINT OF CARE 94 MG/DL (70-110)
[2024-10-01 23:21] VITALS: BP 152/85; PULSE 76; RESP 18; TEMP 98.2; O2SAT 98
[2024-10-02 03:20] VITALS: BP 120/86; PULSE 83; RESP 16; TEMP 98.6; O2SAT 97
[2024-10-02 07:26] LABS: BASOPHILS % (AUTO) 0.9 % (0.0-2.0); EOSINOPHILS % (AUTO) 2.7 % (1.0-6.0); HEMATOCRIT 42.9 % (41-53); LYMPHOCYTES # (AUTO) 3.1 K/uL (1.0-4.8); LYMPHOCYTES % (AUTO) 30.7 % (22.0-44.0); MEAN CORPUSCULAR HEMOGLOBIN 28.5 pg (26.0-34.0); MEAN CORPUSCULAR HGB CONC 32.8 G/dL (31.0-37.0); MEAN CORPUSCULAR VOLUME 87 fL (80-100); MONOCYTES # (AUTO) 0.9 K/uL (0.1-1.0); MONOCYTES % (AUTO) 8.6 % (2.0-9.0); NEUTROPHILS # (AUTO) 5.8 K/uL (1.8-7.7); NEUTROPHILS % (AUTO) 57.1 % (40.0-70.0); PLATELET COUNT (AUTO) 316 K/uL (150-450); RED BLOOD CELL COUNT(AUTO) 4.93 MIL/uL (4.50-5.90); RED CELL DISTRIBUTION WIDTH 14.1 % (11.5-14.5); WHITE BLOOD COUNT (AUTO) 10.2 K/uL (4.5-11.0)
[2024-10-02 07:30] LABS: ANION GAP 8 mmol/L (8-16); CARBON DIOXIDE 27 mmol/L (22-29); CHLORIDE 103 mmol/L (98-107); CREATININE 1.12 mg/dL (0.60-1.30); GLOMERULAR FILTR. RATE CALC > 60 mL/min (>60); GLUCOSE,RANDOM 89 mg/dL (70-110); POTASSIUM 4.2 mmol/L (3.5-5.1); SODIUM SERUM 138 mmol/L (136-145); UREA NITROGEN, BLOOD 21 mg/dL (7-18)
[2024-10-02 07:35] VITALS: BP 134/80; PULSE 83; RESP 18; TEMP 98.1; O2SAT 100
[2024-10-02 08:36] LABS: GLUCOMETER DEV NAME(LOC) 5S.2D; GLUCOSE,POINT OF CARE 95 MG/DL (70-110)
[2024-10-02] MEDS: ATORVASTATIN CALCIUM 20 MG TABLET PO SCH (08:37)
[2024-10-02 11:29] VITALS: BP 143/91; PULSE 86; RESP 18; TEMP 97.9; O2SAT 99
[2024-10-02 12:31] LABS: GLUCOMETER DEV NAME(LOC) 5S.1D; GLUCOSE,POINT OF CARE 111 MG/DL (70-110)
== END 2024-10-02 14:30 | disposition home or self-care (01) | DRG 313 ==
LOC: EMS 23:02 → EDH 10-01 05:52 → 5S 10-01 20:18
PROVIDERS: ADMIT Internal Medicine; ATTEND Internal Medicine
DX: R07.89 Other chest pain (principal); E11.9 Type 2 diabetes mellitus without complications; K21.9 Gastro-esophageal reflux disease without esophagitis; M10.9 Gout, unspecified; F32.A Depression, unspecified; E78.00 Pure hypercholesterolemia, unspecified; F41.9 Anxiety disorder, unspecified; I10 Essential (primary) hypertension; E03.9 Hypothyroidism, unspecified; Z83.3 Family history of diabetes mellitus; Z79.899 Other long term (current) drug therapy; Z79.82 Long term (current) use of aspirin; Z79.02 Long term (current) use of antithrombotics/antiplatelets; Z87.01 Personal history of pneumonia (recurrent)
CPT/HCPCS: 71045; 80048; 80307; 81001; 82962; 84443; 84484; 85025; 85379; 93005; 99285; J1644; 36415-L1; 36415-TC